=== PATIENT | male | born 1970 | race Caucasian/White ===

== ENCOUNTER → 2016-10-11 | Outpatient (CLI) | payer BC ==
[2016-10-11 17:11] LABS: CALCIUM 9.4 mg/dl (8.5-10.1)
[2016-10-15 22:15] LABS: ALBUMIN 4.4 G/DL (3.8-4.8); GAMMA GLOBULIN 0.8 G/DL (0.8-1.7); HLA-B27** TC 528X NEGATIVE (NEGATIVE); TOTAL PROTEIN 7.1 G/DL (6.2-8.3)
== END | disposition home or self-care (01) ==
LOC: C.LAB1850 16:01
PROVIDERS: ATTEND Internal Medicine Rheumatology
DX: M79.1 Myalgia (principal); M89.8X9 Other specified disorders of bone, unspecified site; R79.82 Elevated C-reactive protein (CRP); M25.562 Pain in left knee

== ENCOUNTER → 2016-10-20 | Outpatient (CLI) | payer BC ==
--- NOTE | 2016-10-20 12:27 | DIAGNOSTIC IMAGING REPORT ---
BONE SCAN WHOLE BODY CLINICAL HISTORY: M79.1 [id number] Bone painR79.82 CRP [id number] left knee pain COMPARISON STUDY: Conventional radiographic evaluation of the knees dated 09/01/2016., Right foot and ankle dated 10/17/2015 FINDINGS: The patient was injected with 26.8 mCi of technetium 99m MDP. Three-hour delayed whole body images were acquired. There is minor increased activity with thin the right hip knees and both ankles consistent with a degenerative/arthritic etiology there are no areas of increased activity viewed as suspicious for metastatic disease. IMPRESSION: Areas of mild increased activity with thin the right hip, knees and ankles, consistent with a degenerative/arthritic etiology. Electronically signed by: Claudy Cherry M.D. 10/20/2016 12:26 PM Dictated Date/Time: 10/20/2016 12:23 PM
== END | disposition home or self-care (01) ==
LOC: C.NUCL 07:29
PROVIDERS: ATTEND Internal Medicine Rheumatology
DX: M79.1 Myalgia (principal)

== ENCOUNTER → 2017-02-20 | Outpatient (CLI) | payer BC ==
--- NOTE | 2017-02-20 17:02 | DIAGNOSTIC IMAGING REPORT ---
SI JOINTS 3 OR MORE VIEWS CLINICAL HISTORY: M46.1 Sacroiliitis, not elsewhere [id number] pain COMPARISON STUDY: None FINDINGS: Mild degenerative sclerosis of the inferior aspects of the sacroiliac joints bilaterally. No evidence of bony ankylosis of the remainder of the sacroiliac joints. Sacral foramina are symmetric. IMPRESSION: Mild bony ankylosis and fusion of the inferior aspects of the sacroiliac joints bilaterally. The above report was generated using voice recognition software. It may contain grammatical, syntax or spelling errors. Electronically signed by: Austin Stephenson M.D. 02/20/2017 5:01 PM Dictated Date/Time: 02/20/2017 5:00 PM
[2017-02-20 17:25] LABS: BASO % 0.2 %; BASO ABS # 0.02 K/uL (0-0.2); COMPLETE YES; EOS % 1.7 %; HEMATOCRIT 43.1 % (42-52); IG% 0.2 %; LYMPH % 20.9 %; LYMPH ABS # 1.75 K/uL (1.2-3.4); MEAN CELL VOLUME 88.9 fL (80-100); MEAN CORPUSCULAR HEMOGLOBIN 30.3 pg (25-34); MEAN CORPUSCULAR HGB CONC 34.1 g/dl (32-36); PLATELET COUNT 231 K/uL (130-400); RED BLOOD COUNT 4.85 M/uL (4.7-6.1); WHITE BLOOD COUNT 8.39 K/uL (4.8-10.8)
[2017-02-20 18:01] LABS: ALT/SGPT 61 U/L (12-78)
[2017-02-20 18:04] LABS: ALKALINE PHOSPHATASE 90 U/L (45-117); AST/SGOT 22 U/L (15-37)
== END | disposition home or self-care (01) ==
LOC: C.RAD1850 16:31
PROVIDERS: ATTEND Internal Medicine Rheumatology
DX: M46.1 Sacroiliitis, not elsewhere classified (principal)

== ENCOUNTER → 2017-03-02 | Outpatient (CLI) | payer BC ==
--- NOTE | 2017-03-02 20:55 | DIAGNOSTIC IMAGING REPORT ---
MRI OF THE SACROILIAC JOINTS HISTORY: M46.1 Sacroiliitis, not elsewhere [id number] TECHNIQUE: Multiplanar multisequence MRI of the sacrum/sacroiliac joints were performed without the use of intravenous contrast. COMPARISON STUDY: Bilateral sacroiliac joints 02/20/2017. FINDINGS: There is severe disc space area L5-S1. Normal marrow signal intensity seen within the sacrum and visualized iliac bones. There is no edema within or surrounding the bilateral sacroiliac joints. No erosions identified. There are small bony exostoses along the inferior aspect of the bilateral sacroiliac joints which are fused. An 8 mm hypointense focus within the left posterior iliac bone. This likely represents a bone island. Small focal central disc protrusion at L4-5 and L5-S1 without significant central canal narrowing. No fractures identified within the sacrum. Presacral soft tissues are intact. IMPRESSION: 1. There are small bony exostoses along the inferior aspect of the bilateral sacroiliac joints which are fused. These may represent small syndesmophytes/osteophytes and could be within the range of normal limits. 2. Otherwise, the bilateral sacroiliac joints are within normal limits. Electronically signed by: Jamaal Antoine M.D. 03/02/2017 8:53 PM Dictated Date/Time: 03/02/2017 8:47 PM
== END | disposition home or self-care (01) ==
LOC: C.MRI 19:05
PROVIDERS: ATTEND Internal Medicine Rheumatology
DX: M46.1 Sacroiliitis, not elsewhere classified (principal)

== ENCOUNTER → 2017-05-01 | Outpatient (CLI) | payer BC ==
[2017-05-01 17:14] LABS: BASO % 0.4 %; BASO ABS # 0.03 K/uL (0-0.2); EOS % 2.2 %; EOS ABS # 0.15 K/uL (0-0.5); HEMATOCRIT 42.3 % (42-52); IG# 0.01 K/uL (0.00-0.02); LYMPH % 26.2 %; LYMPH ABS # 1.79 K/uL (1.2-3.4); MEAN CELL VOLUME 90.2 fL (80-100); MEAN CORPUSCULAR HEMOGLOBIN 29.9 pg (25-34); MEAN CORPUSCULAR HGB CONC 33.1 g/dl (32-36); MEAN PLATELET VOLUME 11.4 fL (7.4-10.4); MONO % 7.3 %; NEUT % 63.8 %; NEUT ABS # 4.35 K/uL (1.4-6.5); PLATELET COUNT 205 K/uL (130-400); RED CELL DISTRIBUTION WIDTH CV 13.5 % (11.5-14.5); RED CELL DISTRIBUTION WIDTH SD 43.8 fL (36.4-46.3); WHITE BLOOD COUNT 6.83 K/uL (4.8-10.8)
[2017-05-01 17:36] LABS: ALBUMIN 3.9 gm/dl (3.4-5.0); ALT/SGPT 56 U/L (12-78)
[2017-05-01 17:39] LABS: ALKALINE PHOSPHATASE 80 U/L (45-117); AST/SGOT 21 U/L (15-37); TOTAL PROTEIN 7.6 gm/dl (6.4-8.2)
== END | disposition home or self-care (01) ==
LOC: C.LAB1850 16:15
PROVIDERS: ATTEND Internal Medicine Rheumatology
DX: Z79.899 Other long term (current) drug therapy (principal); M45.9 Ankylosing spondylitis of unspecified sites in spine; R70.0 Elevated erythrocyte sedimentation rate

== ENCOUNTER → 2017-06-21 | Outpatient (CLI) | payer BC ==
[2017-06-21 17:44] LABS: BASO % 0.4 %; BASO ABS # 0.03 K/uL (0-0.2); EOS % 3.8 %; EOS ABS # 0.28 K/uL (0-0.5); HEMATOCRIT 40.3 % (42-52); HEMOGLOBIN 13.5 g/dL (14.0-18.0); IG# 0.01 K/uL (0.00-0.02); LYMPH % 26.4 %; LYMPH ABS # 1.95 K/uL (1.2-3.4); MEAN CELL VOLUME 88.8 fL (80-100); MEAN CORPUSCULAR HEMOGLOBIN 29.7 pg (25-34); MEAN CORPUSCULAR HGB CONC 33.5 g/dl (32-36); MEAN PLATELET VOLUME 11.3 fL (7.4-10.4); MONO ABS # 0.59 K/uL (0.11-0.59); NEUT % 61.3 %; NEUT ABS # 4.52 K/uL (1.4-6.5); PLATELET COUNT 214 K/uL (130-400); RED CELL DISTRIBUTION WIDTH CV 13.5 % (11.5-14.5); RED CELL DISTRIBUTION WIDTH SD 43.7 fL (36.4-46.3); WHITE BLOOD COUNT 7.38 K/uL (4.8-10.8)
[2017-06-21 17:57] LABS: ALBUMIN 3.8 gm/dl (3.4-5.0); ALT/SGPT 48 U/L (12-78); CREATININE 0.99 mg/dl (0.60-1.40)
[2017-06-21 18:00] LABS: ALKALINE PHOSPHATASE 76 U/L (45-117); AST/SGOT 23 U/L (15-37); TOTAL PROTEIN 7.4 gm/dl (6.4-8.2)
== END | disposition home or self-care (01) ==
LOC: C.LAB1850 15:58
PROVIDERS: ATTEND Internal Medicine Rheumatology
DX: M15.9 Polyosteoarthritis, unspecified (principal); M89.8X9 Other specified disorders of bone, unspecified site; E55.9 Vitamin D deficiency, unspecified; Z79.1 Long term (current) use of non-steroidal anti-inflammatories (NSAID); M46.1 Sacroiliitis, not elsewhere classified; M45.9 Ankylosing spondylitis of unspecified sites in spine; Z79.899 Other long term (current) drug therapy

== ENCOUNTER → 2017-10-23 | Outpatient (CLI) | payer BC ==
[2017-10-23 17:10] LABS: BASO % 0.3 %; BASO ABS # 0.02 K/uL (0-0.2); EOS % 1.8 %; EOS ABS # 0.14 K/uL (0-0.5); HEMATOCRIT 43.2 % (42-52); HEMOGLOBIN 14.4 g/dL (14.0-18.0); IG# 0.02 K/uL (0.00-0.02); LYMPH % 23.3 %; LYMPH ABS # 1.85 K/uL (1.2-3.4); MEAN CELL VOLUME 87.8 fL (80-100); MEAN CORPUSCULAR HEMOGLOBIN 29.3 pg (25-34); MEAN CORPUSCULAR HGB CONC 33.3 g/dl (32-36); MEAN PLATELET VOLUME 11.4 fL (7.4-10.4); MONO % 8.3 %; MONO ABS # 0.66 K/uL (0.11-0.59); NEUT ABS # 5.25 K/uL (1.4-6.5); PLATELET COUNT 225 K/uL (130-400); RED CELL DISTRIBUTION WIDTH CV 13.7 % (11.5-14.5); RED CELL DISTRIBUTION WIDTH SD 44.2 fL (36.4-46.3); WHITE BLOOD COUNT 7.94 K/uL (4.8-10.8)
[2017-10-23 17:37] LABS: ALBUMIN 4.1 gm/dl (3.4-5.0); ALKALINE PHOSPHATASE 84 U/L (45-117); ALT/SGPT 56 U/L (12-78); AST/SGOT 23 U/L (15-37); CREATININE 1.49 mg/dl (0.60-1.40); TOTAL PROTEIN 8.1 gm/dl (6.4-8.2)
== END | disposition home or self-care (01) ==
LOC: C.LAB1850 16:15
PROVIDERS: ATTEND Internal Medicine Rheumatology
DX: M46.1 Sacroiliitis, not elsewhere classified (principal); M45.9 Ankylosing spondylitis of unspecified sites in spine; J04.0 Acute laryngitis; Z79.899 Other long term (current) drug therapy; Z79.52 Long term (current) use of systemic steroids

== ENCOUNTER → 2017-10-30 | Outpatient (CLI) | payer BC ==
[2017-10-30 17:00] LABS: BLOOD UREA NITROGEN 17 mg/dl (7-18); CREATININE 1.17 mg/dl (0.60-1.40)
== END | disposition home or self-care (01) ==
LOC: C.LAB1850 15:31
PROVIDERS: ATTEND Internal Medicine Rheumatology
DX: N28.9 Disorder of kidney and ureter, unspecified (principal)

== ENCOUNTER 2020-08-18 06:19 | Observation (INO) ==
--- NOTE | 2020-07-23 09:40 | PAT Medication Instructions ---
Medication Instructions Date of Service July 23, 2020 Home Medications acetaminophen [Tylenol] 325 mg PO QID PRN albuterol 90 mcg INHALATION DAILY PRN cholecalciferol (vitamin D3) [Vitamin D3] 25 mcg PO DAILY fluticasone furoate-vilanterol [Breo Ellipta] 1 inh INHALATION DAILY PRN multivitamin 1 tab PO QAM DO NOT take the morning of surgery cholecalciferol (vitamin D3) [Vitamin D3] 25 mcg PO DAILY multivitamin 1 tab PO QAM Take morning of surgery With a small sip of water, OTHERWISE NOTHING TO EAT OR DRINK AFTER MIDNIGHT: acetaminophen [Tylenol] 325 mg PO QID PRN (okay to take up to 4 hours prior to surgery if needed) albuterol 90 mcg INHALATION DAILY PRN (use if needed; please bring rescue inhaler with you to hospital day of surgery if possible) fluticasone furoate-vilanterol [Breo Ellipta] 1 inh INHALATION DAILY PRN (if needed) Take evening before surgery acetaminophen [Tylenol] 325 mg PO QID PRN (if needed) albuterol 90 mcg INHALATION DAILY PRN (if needed) fluticasone furoate-vilanterol [Breo Ellipta] 1 inh INHALATION DAILY PRN (if needed) Other Notes If you have any questions please call us at [phone] or [phone] or [phone] or [phone]
--- NOTE | 2020-07-27 08:52 | Anesthesiology Consultation ---
Date of Service July 27, 2020 Assessment & Plan (1) Encounter for pre-operative examination: COVID screening: Per assessment on 07/27: Travel screen negative, no known COVID- 19 positive contacts or current COVID-19 related symptoms. Surgeon arranging preop COVID testing. Awaiting results. Chart Review Chart Review: Acceptable Risk for Surgery and Patient seen in Pre Admission Testing Teaching & Discussion Pre-Anesthesia Teaching/Discussion Notes: Instructed NPO after midnight before surgery,except medications with 15 cc of water. Medication instructions provided according to the PAT guidelines. History Surgery Operation Date: 08/18/20 12:30 Proposed Procedures p Left Total Hip Arthroplasty(Left) - Anam Mcqueen MD Height/Weight Height: 5 ft 9.5 in Weight: 110.5 kg Allergies Allergy/AdvReac Type Severity Reaction Status Date / Time Penicillins Allergy Unknown Unknown Verified 07/24/20 14:22 reaction as baby Medications Home Medications Medication Instructions Recorded Confirmed Last Taken acetaminophen [Tylenol] 325 mg PO QID PRN 07/20/20 07/20/20 Unknown albuterol 90 mcg INHALATION DAILY PRN 07/20/20 07/20/20 Unknown cholecalciferol (vitamin D3) 25 mcg PO DAILY 07/20/20 07/20/20 Unknown [Vitamin D3] fluticasone furoate-vilanterol 1 inh INHALATION DAILY PRN 07/20/20 07/20/20 Unknown [Breo Ellipta] multivitamin 1 tab PO QAM 07/20/20 07/20/20 Unknown Past Medical History Medical History Asthma controlled Bilateral hip joint arthritis Obesity Exercise / Class Metabolic Activity II 4-5 Yardwork/Stairs/Walk up hill Past Surgical History Surgical History History of carpal tunnel surgery of right wrist Hx of rotator cuff surgery Right Hx of umbilical hernia repair Past Anesthesia History Other (post-op constipation) History of PONV No Hx of PONV and Hx of Motion Sickness (Mild) Social History Smoking Status: Never smoker Do You Dip or Chew Tobacco: No Hx Alcohol Use: Yes alcohol intake frequency: holidays/special occasions only Hx Substance Use: No substance use type: does not use Review of Systems Patient denies chest pain, shortness of breath, dyspnea on exertion, fever, chills, cough, wheezing, palpitations. Physical Exam Vital Signs VITALS BP 145/83 P 67 TEMP 98.3 SP02 96%RA RESP 18 PHYSICAL Full cervical extension range of motion. Full TMJ range of motion. TMD 3 finger breaths Mallampati Score 3 Dentition: intact, + crown Lungs: clear throughout to auscultation Cardiac: regular rate and rhythm, no murmurs noted Spine: normal Carotid arteries: negative bruit Extremities: no edema Testing Laboratory Results 07/27/20 09:30 07/27/20 09:30 PT 9.8 Seconds (9.0-12.0) 07/27/20 09:30 INR 1.0 (0.9-1.1) 07/27/20 09:30 APTT 25.2 Seconds (21.0-31.0) 07/27/20 09:30 Blood Type A Positive 07/27/20 09:30 Antibody Screen NEGATIVE 07/27/20 09:30 Electrocardiogram Date: 07/27/20 Findings: + NSR @ (60) Chest X-Ray Date: 07/27/20 FINDINGS: Lung volumes are at the lower limits of normal. Lungs are clear. There is no pneumothorax or pleural effusion. Suspected mild cardiomegaly is noted. Mediastinal contours are normal. There is no evidence for pulmonary edema. IMPRESSION: No acute cardiopulmonary findings. Probable mild cardiomegaly.
--- NOTE | 2020-07-27 10:00 | XRay Report ---
XR chest Pre-admission PA/Lat CLINICAL HISTORY: Preoperative evaluation. COMPARISON STUDY: No previous studies for comparison. FINDINGS: Lung volumes are at the lower limits of normal. Lungs are clear. There is no pneumothorax o r pleural effusion. Suspected mild cardiomegaly is noted. Mediastinal contours are normal. There is n o evidence for pulmonary edema. IMPRESSION: 1. No acute cardiopulmonary findings. 2. Probable mild cardiomegaly. ACT 112: Negative or not required by law. Electronically signed by: Raul Torrez M.D. 07/27/2020 9:59 AM
[2020-07-27 10:30] LABS: Basophils # (auto) 0.01 K/uL (0-0.2); Basophils % (auto) 0.1 %; Eosinophils # (auto) 0.08 K/uL (0-0.5); Eosinophils % (auto) 1.1 %; Hematocrit (blood only) 42.8 % (42-52); Immature Granulocytes # (auto) 0.01 K/uL (0.00-0.02); Immature Granulocytes % (auto) 0.1 %; Lymphocytes # (auto) 1.46 K/uL (1.2-3.4); Lymphocytes % (auto) 20.4 %; Mean Corpuscular Hemoglobin 29.9 pg (25-34); Mean Corpuscular Hgb Conc 32.7 g/dL (32-36); Mean Corpuscular Volume 91.5 fL (80-100); Mean Platelet Volume 11.4 fL (7.4-10.4); Monocytes # (auto) 0.51 K/uL (0.11-0.59); Monocytes % (auto) 7.1 %; Neutrophils # (auto) 5.09 K/uL (1.4-6.5); Neutrophils % (auto) 71.2 %; Platelet Count 236 K/uL (130-400); RDW Coefficient of Variation 13.6 % (11.5-14.5); RDW Standard Deviation 44.7 fL (36.4-46.3); Red Blood Count 4.68 M/uL (4.7-6.1); White Blood Count 7.16 K/uL (4.8-10.8)
[2020-07-27 10:47] LABS: Partial Thromboplastin Time 25.2 Seconds (21.0-31.0); Prothrombin Time 9.8 Seconds (9.0-12.0)
[2020-07-27 12:16] LABS: BUN Creatinine Ratio 17.5 (10-20); Calcium 9.6 mg/dl (8.5-10.1); Creatinine Clr Calc Pharmacy 94.4 ml/min; Est GFR (African American) 86.1; Est GFR (Non-African American) 74.3; Potassium 4.4 mmol/L (3.5-5.1)
--- NOTE | 2020-07-27 14:48 | Electrocardiogram Report ---
Test Reason : Blood Pressure : / mmHG Vent. Rate : 060 BPM Atrial Rate : 060 BPM P-R Int : 164 ms QRS Dur : 090 ms QT Int : 400 ms P-R-T Axes : 058 017 026 degrees QTc Int : 400 ms Normal sinus rhythm Normal ECG No previous ECGs available Confirmed by Aidan Luque ([id number]) on 07/27/2020 2:47:56 PM Referred By: Anam Mcqueen Confirmed By:Aidan Luque
--- NOTE | 2020-08-14 15:11 | History and Physical Report ---
DATE OF ADMISSION: 08/18/2020 CHIEF COMPLAINT: Bilateral hip pain and discomfort, left side greater than the right. HISTORY OF PRESENT ILLNESS: The patient is a 50-year-old gentleman who presents for treatment of his hips. He has got a long history of bilateral hip pain and discomfort as well as some knee pain. It has been going on for several years and gradually getting worse. He has gotten to the point where he is having trouble doing his work. 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 He has groin pain and thigh pain. By the end of the day, he is pretty miserable. He has got pain and stiffness. He has difficulty putting his shoes and socks on. He has not been able to go out and goetz due to his pain. It is really affecting his lifestyle and slowed him down. He would like to consider surgical treatment. The left hip is bothering him more than the right. He is having some knee pain as well. PAST MEDICAL HISTORY: 1. Arthritis. 2. Asthma. PAST SURGICAL HISTORY: Includes, 1. Rotator cuff repair. 2. Carpal tunnel release. 3. Umbilical hernia repair. ALLERGIES: None. CURRENT MEDICINES: Include, 1. Albuterol. 2. Breo Ellipta. 3. Vitamin D3. 4. Ibuprofen. 5. Tylenol. SOCIAL HISTORY: A 50-year-old male. 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 He is . Two drinks per day. Three children. Does not smoke. FAMILY HISTORY: Significant for kidney disease. REVIEW OF SYSTEMS: Negative for diabetes, neurologic problem, vascular problem, or bleeding disorders. Denies any chest pain or shortness of breath. He does have multiple other musculoskeletal aches and pains. PHYSICAL EXAMINATION: GENERAL: Shows a pleasant, healthy appearing 50-year-old male. HEENT: Benign. NECK: Supple, no lymphadenopathy. LUNGS: Clear to auscultation. HEART: Has a regular rate and rhythm. ABDOMEN: Soft, nontender, nondistended. EXTREMITIES: Grossly neurovascularly intact except as follows: Examination of both hips reveals the patient walks with a slow kind of waddling gait. Examination of left hip reveals just a slight bit of shortness compared to the right hip, maybe 0.5 cm at best. He does have a very stiff hip with internal rotation to about -10 and external rotation to 25 degrees. He has got pain with internal rotation. Negative straight leg raise. Examination of the right hip reveals a similar appearance. Pretty equal leg lengths. very stiff hip motion. Pain with any type of attempted hip internal rotation. Negative straight leg raise. Examination of the left knee reveals slight varus alignment. Small knee effusion. He is tender over the medial joint line. Range of motion is 5-125. No instability. X-RAYS: X-rays of both hips reveal advanced bilateral hip DJD. The left side is worse than the right. He has got complete loss of his joint space and cystic changes on both sides of the joint. He has got osteophytes around the femoral head and acetabulum. X-rays of the left knee reveals some medial compartment arthritis. ASSESSMENT: A 50-year-old gentleman with: 1. Advanced bilateral hip degenerative joint disease, left side more symptomatic than right. 2. Left knee degenerative joint disease. His hips are bothering him more than his knee at this point. He would really like to have his hips fixed as they are limiting his lifestyle. PLAN: We will plan on taking him to the operating room and do a left total hip replacement. The risks and benefits of this procedure were explained to the patient including but not limited to DVT, PE, , infection, neurological injury, vascular injury, bleeding problem, pain, limited range of motion, stiffness, failure to relieve his symptoms, etc. The patient understands and desires to proceed. Informed consent was obtained.
[~2020-08-18 06:19] MED LIST: ACETAMINOPHEN 500 MG TAB PO SCH; FAMOTIDINE 20 MG TAB PO SCH; GABAPENTIN 900 MG DOSE PO SCH; LACTATED RINGER'S 1,000 ML IV SCH; LR 500ML BOLUS, THEN 15ML/HR IV SCH; Scopolamine 1 MG TDSY TD SCH; TRANEXAMIC ACID 1,000 MG **IV Pre-op IV SCH; ceFAZolin 2000MG 2,000 MG/15 ML SYR IV SCH
[2020-08-18] MEDS ORDERED: BUPIVACAINE 0.5 % 5 MG/1 ML PF 10ML VIAL ONE (06:31)
--- NOTE | 2020-08-18 06:50 | History & Physical Bridge Note ---
Date of Service August 18, 2020 History & Physical Bridge Note I have examined the patient, reviewed the History & Physical and in the interval since the performance of the History & Physical I have noted the following changes of clinical significance: no changes noted
[2020-08-18] MEDS ORDERED: MIDAZOLAM HCL 1 MG/ML 2ML VIAL ONE (07:40)
[2020-08-18] MEDS ORDERED: fentaNYL citrate 100 MCG/2 ML VIAL ONE (07:40)
[2020-08-18] MEDS ORDERED: LIDOCAINE HCL 2% 2 ML VIAL/AMP(20MG/ML) INFIL ONE (07:42)
[2020-08-18] MEDS ORDERED: ONDANSETRON INJ 2 MG/ML 2 ML VIAL ONE (07:42)
[2020-08-18] MEDS ORDERED: PROPOFOL IV EMULSION 10 MG/ML 20 ML VIAL IV ONE (07:42)
[2020-08-18] MEDS ORDERED: BUPIVACAINE/EPINEPHRINE 0.5% MPF 1:200,000 30 ML VIAL ONE (08:37)
[2020-08-18] MEDS ORDERED: MoRPHine SULFATE PF 1 MG/ML 10 ML AMP/VIAL ONE (08:48)
[2020-08-18] MEDS ORDERED: fentaNYL citrate 100 MCG/2 ML VIAL IV PRN (08:55)
[2020-08-18] MEDS ORDERED: ATROPINE SULFATE 0.1 MG/ML 10ML SYR IV PRN (08:55)
[2020-08-18] MEDS ORDERED: ePHEDrine sulfate 50 MG/ML AMP IV PRN ×2 (08:55→09:11)
[2020-08-18] MEDS ORDERED: ONDANSETRON INJ 2 MG/ML 2 ML VIAL IV PRN ×2 (08:55→09:11)
[2020-08-18] MEDS ORDERED: diphenhydrAMINE 50 MG/ML VIAL IV PRN (09:11)
[2020-08-18] MEDS ORDERED: PROMETHAZINE HCL 25 MG in SODIUM CHLORIDE 0.9% 50 ML IV PRN (09:11)
[2020-08-18] MEDS ORDERED: NALOXONE HCL 1 MG in SODIUM CHLORIDE 0.9% 1000ML 1,000 ML IV PRN (09:11)
[2020-08-18] MEDS ORDERED: LACTATED RINGER'S 500 ML IV PRN (09:11)
[2020-08-18] MEDS ORDERED: NALOXONE HCL 0.08 MG in SYRINGE 1.8 ML IV PRN (09:11)
[2020-08-18] MEDS ORDERED: HYDROmorphone INJ 0.5 MG/0.5 ML SYR IV PRN (09:11)
[2020-08-18] MEDS ORDERED: NALOXONE HCL 0.4 MG/1 ML VIAL/CARP IV PRN ×2 (09:11→12:20)
[2020-08-18] MEDS ORDERED: MoRPHine SULFATE PF 1 MG/ML 10 ML AMP/VIAL INT SPINAL ONE (09:11)
[2020-08-18] MEDS ORDERED: NO NARCOTICS OR SEDATIVES SCH (09:15)
[2020-08-18] MEDS ORDERED: DC INTRASPINAL MORPHINE SCH (09:15)
[2020-08-18] MEDS ORDERED: SODIUM CHLORIDE 0.9% 1000ML 1,000 ML IV SCH (09:15)
[2020-08-18] MEDS ORDERED: ePHEDrine sulfate 50 MG/ML AMP ONE (09:33)
[2020-08-18] MEDS ORDERED: PHENYLEPHRINE 100MCG/ML 5ML SYR ONE (09:33)
--- NOTE | 2020-08-18 10:43 | Operative Report ---
Post Operative Report Pre & Post Diagnosis Operation Date: 08/18/20 08:50 Pre-Op Diagnosis: Left Hip Osteoarthritis Post-Op Diagnosis: Left Hip Osteoarthritis I identified the patient and participated in the time-out.: Yes Procedure Operation Date: 08/18/20 08:50 Actual Procedures p Left Total Hip Arthroplasty(Left) - Anam Mcqueen MD Surgeon Anam Mcqueen MD Car Lubricator ARLETTE Biswas Estimated Blood Loss 200 Findings Consistent with Post-Op Diagnosis Operative findings were advanced left hip DJD. Grade 4 [id number] disease of the femoral head and acetabulum. He had a significant anterior and inferior acetabular osteophytes. Moderate-sized joint effusion. Fluids 1100 cc of fluid Specimens Left femoral head sent for pathology. Drains None. 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 Failed all conservative measures. X-rays revealed advanced left hip DJD. He elected proceed with surgical treatment. Description of Procedure Operative implants consist of: 1 Biomet G7 size 54 mm acetabular shell. 2. 6.5 cancellous acetabular screws 1 of 35 mm length and 1 of 30 mm length. 3. [place] hole sleeve turner. 4. 54 mm outer diameter and 36 mm diameter highly cross-linked polyethylene liner. 5. DePuy karate size 10 KLA femoral stem. 6. +5/36 mm ceramic articular ball. The patient was taken to the operating room, identified, placed on the operating table supine position protectors were properly padded. IV antibiotics 5 by anesthesia team. A spinal anesthetic had been implemented holding area. Schulz catheter was placed in sterile fashion. The patient was then placed in the right lateral decubitus position. Axillary roll was placed. Stulberg hip positioner was used for positioning. The left hip and leg were then prepped and draped in usual sterile fashion. A posterior lateral approach to the left hip was then performed to a curvilinear incision centered over the greater trochanter. Sharp dissection got through subcutaneous this down to the IT band gluteal fascia the IT band gluteal fascia incised longitudinally in line with skin incision. The underlying greater bursa was excised. The piriformis and external rotators were tagged and taken off the posterior aspect of the femur. Great care was taken throughout the procedure protect the sciatic nerve at all times. Posterior capsulotomy was then performed leaving a large flap for later repair. Hip was internally rotated and dislocated. A femoral neck osteotomy cut was made with Final Cut about 10 mm above the lesser trochanter. Femoral head was removed and sent for pathology. The femur was retracted anteriorly. Attention drawn the acetabulum. The acetabular labrum was excised. The pulmonary fat was the cup size. Sequential reaming the acetabular was then performed begin with size 45 and progressing up to 53. I did reamed some with a 54 reamer. I then placed a 54 mm Biomet G7 acetabular shell was about 40 degrees lateral opening and 20 degrees of anteversion. 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 Large anterior osteophyte was removed. The cup was fixed with two 6.5 cancellous acetabular screws. Trial liner was placed. Attention drawn the femur. Proximal femur was entered with a cookie-cutter followed by canal finder. I then broached beginning with size 8 and progressing up to 10. Got excellent fit of the tendon. He had a very good cancellous envelope. Calcar reamer was used smooth and off the calcar. Then trialed the hip and the +5 articular ball provide full stability full extension and external rotation and flexion to 9 degrees internal rotation over 50 degrees. I did realize that he may have lengthened this leg just slightly but he has got hip arthritis and the other side will need that replaced as well. 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 We elect to place these implants. All trial implants were removed. An apex hole sleeve turner was placed but highly cross-linked polyethylene liner was placed. I Marlon size 10 KLA femoral stem was impacted in position. +5/36 mm ceramic articular ball was placed. Hip was located once again found to be stable. Attention drawn toward closing. Wounds irrigated closed muscle pulsatile lavage solution. I did inject locally with 60 cc of absent Marcaine with epinephrine. The posterior capsule and external rotators were then repaired through drill holes in the posterior trochanter with #2 Tycron suture. The IT band gluteal fascia then closed in 1 PDS suture running fashion for subcutaneous tissue then closed with 2 layers the deep layer #1 Vicryl suture and subcutaneous tissues with 2-0 Dexon suture in a buried fashion. Skin was closed skin leo. Legs then cleaned dried and sterile dressing both Xeroform, 4 x 4's, sterile ABD pad, foam tape was applied. Patient then transferred to the recovery room in stable condition. Patient tolerated the procedure well and there were no complications. Gamaliel Biswas, my physician assistant teaching professor, was present for the entire procedure. His assistance was essential and required for appropriate patient positioning, prepping and draping, surgical exposure, performing the technical details of the operation, placement the implants, closure of the wound, and placement of the sterile bandage. I attest to the content of the Intraoperative Record and any orders documented therein. Any exceptions are noted below.
--- NOTE | 2020-08-18 11:09 | XRay Report ---
XR hip 1V LT w pelvis HISTORY: 50 years-old Male IN PACU - A/P PELVIS and LATERAL HIP left hip total joint arthroplasty COMPARISON: Pelvis and left hip radiograph 03/14/2018 TECHNIQUE: AP view of the pelvis with 2 views of the left hip FINDINGS: Moderate right hip posterior arthritis. Left hip total joint arthroplasty. Lateral left hip skin stap les are present along with expected post surgical soft tissue swelling and deep tissue air. No acute fracture or opaque foreign body. IMPRESSION: Left hip total joint arthroplasty with expected postoperative changes. ACT 112: Negative or not required by law. The above report was generated using voice recognition software. It may contain grammatical, syntax o r spelling errors. Electronically signed by: Alex Kohler M.D. 08/18/2020 11:08 AM
[2020-08-18] MEDS ORDERED: PHENYLEPHRINE HCL 10 MG/ML VIAL ONE (11:26)
--- NOTE | 2020-08-18 11:45 | Anesthesiology Progress Note ---
Date of Service August 18, 2020 Anesthesia Post Procedure Vital Signs Vital Signs: Temp Pulse Pulse Resp BP BP Pulse Ox 08/18/20 11:14 83 12 105/63 94 08/18/20 11:00 91 H 14 95/63 L 95 08/18/20 10:50 92 H 16 112/68 99 08/18/20 10:40 86 13 114/68 96 08/18/20 10:32 36.6 C 85 14 132/79 96 08/18/20 07:22 36.5 C 62 18 141/83 H 94 08/18/20 06:49 36.6 C 66 20 146/84 H 99 Pain Intensity Left Hip: Pain Intensity: 0 Transfer of Care Handoff Completed per policy Notes Mental Status: alert / awake / arousable and participated in evaluation Nausea / Vomiting: adequately controlled Pain: adequately controlled Airway Patency, RR, SpO2: stable & adequate BP & HR: stable & adequate Hydration State: stable & adequate Neuraxial Anesthesia: was administered and sensory block is resolving Anesthetic Complications: no major complications apparent and Pt Satisfied with anesthetic care
[2020-08-18] MEDS ORDERED: ALUMINUM/MAGNESIUM SUSP 30 ML UDC PO PRN (12:20)
[2020-08-18] MEDS ORDERED: TAMSULOSIN HCL 0.4 MG CAP PO PRN (12:20)
[2020-08-18] MEDS ORDERED: bisacodyL 10 MG SUPP PR PRN (12:20)
[2020-08-18] MEDS ORDERED: MAGNESIUM HYDROXIDE SUSP 30 ML UDC PO PRN (12:20)
[2020-08-18] MEDS ORDERED: METOCLOPRAMIDE HCL INJ 5 MG/ML 2 ML VIAL IV PRN (12:20)
[2020-08-18] MEDS ORDERED: FLUTICASONE/VILANTEROL 100/25MCG 14 PUFFS/INHALER INH PRN (12:20)
[2020-08-18] MEDS ORDERED: ALBUTEROL HFA 8 GM INHALER INH PRN (12:37)
[2020-08-18] MEDS: SODIUM CHLORIDE 0.9% 1000ML 1,000 ML IV SCH ×2 (13:07→18:27)
[2020-08-18] MEDS: KETOROLAC 30 MG/ML VIAL IV SCH ×2 (13:07→19:30)
[2020-08-18] MEDS: ACETAMINOPHEN 500 MG TAB PO SCH ×2 (13:07→21:13)
[2020-08-18] MEDS ORDERED: TRANEXAMIC ACID / 0.7% NACL 1,000 MG/100 ML BAG IV SCH (16:30)
[2020-08-18] MEDS: Scopolamine CHECK PATCH PLACEMENT SCH ×2 (17:00→22:47)
[2020-08-18] MEDS: ceFAZolin 2000MG 2,000 MG/15 ML SYR IV SCH ×2 (17:00→22:47)
[2020-08-18] MEDS: ASCORBIC ACID 500 MG TAB PO SCH (17:40)
[2020-08-18] MEDS ORDERED: SENNA 8.6 MG TAB PO SCH (21:00)
[2020-08-18] MEDS: ASPIRIN 81 MG ECTAB PO SCH (21:13)
[2020-08-18] MEDS: DOCUSATE SODIUM 100 MG CAP PO SCH (21:13)
[2020-08-19] MEDS: SODIUM CHLORIDE 0.9% 1000ML 1,000 ML IV SCH (00:40)
[2020-08-19] MEDS: KETOROLAC 30 MG/ML VIAL IV SCH ×3 (00:42→14:42)
[2020-08-19] MEDS ORDERED: traMADol HCL 50 MG TABLET PO PRN (03:12)
[2020-08-19] MEDS ORDERED: HYDROmorphone INJ 0.5 MG/0.5 ML SYR IV PRN (03:12)
[2020-08-19] MEDS ORDERED: ONDANSETRON INJ 2 MG/ML 2 ML VIAL IV PRN (03:12)
[2020-08-19] MEDS ORDERED: diphenhydrAMINE Capsule 25 MG CAP PO PRN (03:12)
[2020-08-19] MEDS: ACETAMINOPHEN 500 MG TAB PO SCH ×2 (06:02→14:45)
[2020-08-19 06:22] LABS: Basophils # (auto) 0.01 K/uL (0-0.2); Basophils % (auto) 0.1 %; Eosinophils # (auto) 0.11 K/uL (0-0.5); Eosinophils % (auto) 1.4 %; Hematocrit (blood only) 33.7 % (42-52); Hemoglobin 11.2 g/dL (14.0-18.0); Immature Granulocytes # (auto) 0.02 K/uL (0.00-0.02); Immature Granulocytes % (auto) 0.3 %; Lymphocytes # (auto) 1.14 K/uL (1.2-3.4); Lymphocytes % (auto) 14.7 %; Mean Corpuscular Hemoglobin 30.7 pg (25-34); Mean Corpuscular Hgb Conc 33.2 g/dL (32-36); Mean Corpuscular Volume 92.3 fL (80-100); Mean Platelet Volume 10.5 fL (7.4-10.4); Monocytes # (auto) 0.71 K/uL (0.11-0.59); Monocytes % (auto) 9.1 %; Neutrophils # (auto) 5.78 K/uL (1.4-6.5); Neutrophils % (auto) 74.4 %; Platelet Count 171 K/uL (130-400); RDW Coefficient of Variation 13.3 % (11.5-14.5); RDW Standard Deviation 45.3 fL (36.4-46.3); Red Blood Count 3.65 M/uL (4.7-6.1); White Blood Count 7.77 K/uL (4.8-10.8)
[2020-08-19 06:49] LABS: BUN Creatinine Ratio 13.6 (10-20); Calcium 7.7 mg/dl (8.5-10.1); Creatinine Clr Calc Pharmacy 102.6 ml/min; Est GFR (African American) 96.3 ml/min; Est GFR (Non-African American) 83.1 ml/min; Potassium 4.4 mmol/L (3.5-5.1)
[2020-08-19] MEDS ORDERED: dexAMETHasone 10 MG in SYRINGE 0 ML IV SCH (08:00)
[2020-08-19] MEDS: DOCUSATE SODIUM 100 MG CAP PO SCH (08:06)
[2020-08-19] MEDS: Scopolamine CHECK PATCH PLACEMENT SCH (08:06)
[2020-08-19] MEDS: ASCORBIC ACID 500 MG TAB PO SCH (08:06)
[2020-08-19] MEDS: ASPIRIN 81 MG ECTAB PO SCH (08:06)
[2020-08-19] MEDS ORDERED: MULTIVITAMIN TAB PO SCH ×2 (09:00)
[2020-08-19] MEDS ORDERED: CHOLECALCIFEROL 1,000 UNITS 25 MCG TAB PO SCH (09:00)
--- NOTE | 2020-08-19 16:19 | Progress Notes ---
DATE: 08/19/2020 SUBJECTIVE: A 50-year-old gentleman postoperative day 1 from a left hip replacement. He is doing well. Pain is controlled. Therapy went pretty well. No chest pain or shortness of breath. Not feeling dizzy or lightheaded. OBJECTIVE: VITAL SIGNS: Temperature 37.0. Vital signs stable. GENERAL: Shows a pleasant, middle-aged male. He is walking in the hallways with his when I visited him this afternoon. EXTREMITIES: Examination of the left hip reveals the dressing to be clean, dry and intact. Leg lengths were equal. Thigh is soft and supple. He is neurologically intact. LABORATORY DATA: Hemoglobin is 11.2. Hematocrit 33.7. Electrolytes are stable. ASSESSMENT: A 50-year-old gentleman postop day #1 from a left hip replacement, doing well. Pain is controlled. Hip is located. He is neurologically intact. PLAN: 1. DVT prophylaxis including thigh-high TEDs, SCDs, and aspirin twice a day. 2. PT/OT. Weight bear as tolerated. Left total hip protocol. 3. Pain control, doing well with current pain regimen. 4. Disposition: Plan to discharge to home with some home health likely later today.
--- NOTE | 2020-08-21 06:38 | Discharge Summary ---
Date of Service August 21, 2020 Discharge Data Procedures Performed Operation Date: 08/18/20 08:50 Actual Procedures p Left Total Hip Arthroplasty(Left) - Anam Mcqueen MD Hospital Course (1) Status post total hip replacement, left: This patient is a 50 year old male admitted on 08/18/20 and underwent total hip arthroplasty. He tolerated the procedure well and there were no complications. Transferred to the PACU post op and later to the orthopedic floor for further care. He was given ancef for antibiotic prophylaxis. He was also given ENZO stockings, SCDs, and aspirin for DVT prophylaxis. Hemoglobin, hematocrit, and vital signs were monitored during his hospital stay and remained stable. Did not require any blood transfusions. There were no complications during his hospital stay. By post op day #1 the patient was tolerating a regular diet, pain was reasonably controlled with oral pain medicine, and he was participating in physical therapy. On post op day #1 the patient was discharged home and set up with home health care. He was given printed discharge instructions including prescriptions for extra strength tylenol, aspirin, and tramadol. Continue physical therapy, weight bearing as tolerated. Continue hip precautions. Continue ENZO stockings. Follow up approximately 2 weeks post op or sooner if there are problems or concerns. Coding Level of Care Code None Diagnoses Status post total hip replacement, left Z96.642
== END 2020-08-19 16:29 | disposition home health service (06) ==
LOC: ASU 06:19 → 3E 06:19